=== PATIENT | male | born 1925 | race Caucasian/White ===

== ENCOUNTER 2016-05-04 10:22 | Emergency (ER) | payer OTHER ==
--- NOTE | ~2016-05-04 | CR72 ---
[facility] A Service of [facility] RADIOLOGY TEXT RESULTS PATIENT: ISIAH DAMON LOCATION: [facility] : [birth year] UNIT #: [id number] AGE: [address]: Andrew Arias MD SEX: M ORDER DR: [id number] [facility] [address] [place] [address] [place], [place] [address] [id number] E MR#: [id number] Acc #: [id number] NAME: ISIAH DAMON. : 1925 SEX: M STUDY DATE/TIME: 05/04/2016 10:13 UNIT: [facility] ROOM: STUDY DESCRIPTION: CR Chest Single View Portable Attending Physician: Andrew Arias M.D. Ordering Physician: Andrew Arias M.D. Primary Care Physician: John Doll M.D. MEDICAL IMAGING REPORT This report is preliminary unless electronic signature is present EXAM Portable chest HISTORY Weakness with low blood sugar, onset today. Previous history of bypass surgery. COMPARISON 02/16/2013 TECHNIQUE Single AP view of the chest was obtained. FINDINGS Mild cardiomegaly is seen and unchanged from the previous exam. No new infiltrates are seen on either side. No pleural fluid is noted. Calcified pleural plaques are seen on the left and there is generalized pleural thickening on the right but this is unchanged. Vascular markings are normal. IMPRESSION Chronic pleural disease bilaterally, stable since the previous exam. No new infiltrates are seen. Pulmonary vascular markings are normal. Dictated by... Jovanny Kaiser M.D. THIS IS AN ELECTRONICALLY VERIFIED REPORT Jovanny Kaiser M.D. at 05/05/2016 10:46 AM YANDEL/natalio TD: 05/04/2016 15:09 JOB #: [id number] [facility] A Service [facility] RADIOLOGY TEXT RESULTS PATIENT: ISIAH DAMON LOCATION: [facility] : [birth year] UNIT #: [id number] AGE: [address]: Andrew Arias MD SEX: M ORDER DR: MEDICAL IMAGING REPORT Page 1 of 1 COPY
[~2016-05-04 10:22] MED LIST: ALTACE2.5 MG PO; ASPIRINEC PO; BACTROBAN22 GM TP; CIPRO PO; COLACE PO; COREG3.125 MG PO; ECOTRIN81 M1 PO; FLOMAX0.4 M1 PO; FUROSEMIDE40 MG PO; GLUCOTROL PO; HUMULIN 70/30 V10 ML SUBQ; HUMULIN 70100 UNIT/1 SQ; LANOXIN PO; LASIX20 MG PO; LIPITOR PO; METRONIDAZOLE PO; PIOGLITAZONE15 MG PO; TYLENOL325 M1 PO
[2016-05-04 10:25] LABS: BASOPHIL# 0.1 X10e3 (0-0.3); BASOPHIL% 0.4 % (0-2.5); EOSINOPHIL# 0.3 X10e3 (0-0.7); HEMATOCRIT 41.2 % (38.0-50.0); HEMOGLOBIN 13.2 gm/dL (13.0-16.0); LYMPHOCYTE# 1.3 X10e3 (1.0-3.5); MEAN CELL VOLUME 94.2 FL (83-96); MEAN CORPUSCULAR HEMOGLOBIN 30.1 PG (28-34); MEAN PLATELET VOLUME 10.6 FL (6.5-11.5); MONOCYTE# 1.5 X10e3 (0-1.0); MONOCYTE% 10.9 % (3.0-12.0); NEUTROPHIL# 10.8 X10e3 (1.5-7.1); NEUTROPHIL% 77.7 % (40-75); PLATELET COUNT 168 X10e3 (140-420); RED BLOOD COUNT 4.38 X10e (3.90-5.60); WHITE BLOOD COUNT 13.9 X10e3 (4.0-10.5)
[2016-05-04 10:29] LABS: DIFF IND NO
[2016-05-04 10:56] LABS: ALBUMIN SERUM 3.5 g/dL (3.5-5.0); ALKALINE PHOSPHATASE 84 U/L (32-92); ALT (SGPT) 21 U/L (10-40); AST (SGOT) 25 U/L (10-42); BILIRUBIN,TOTAL 0.8 mg/dL (0.2-2.0); BLOOD UREA NITROGEN 24 mg/dL (9-23); CALCIUM SERUM 8.9 mg/dL (8.4-10.2); CARBON DIOXIDE 33 mmol/L (22-31); CHLORIDE 102 mmol/L (100-111); GLOM FILT RATE Estimated ABOVE60 mL/min (>60); POTASSIUM 3.7 mmol/L (3.5-5.1); PROTEIN TOTAL SERUM 7.2 g/dL (6.0-8.3); SODIUM 139 mmol/L (135-145)
[2016-05-04 11:00] LABS: GLUCOSE FASTING 31 mg/dL (70-110)
== END 2016-05-04 14:35 | disposition home or self-care (01) ==
LOC: CED 10:22
PROVIDERS: Emergency Medicine
DX: E10.65 Type 1 diabetes mellitus with hyperglycemia (principal); I10 Essential (primary) hypertension; Z79.899 Other long term (current) drug therapy; Z79.82 Long term (current) use of aspirin; Z87.891 Personal history of nicotine dependence
CPT/HCPCS: 36415; 71010; 80053; 82947; 85025; 96374; 99291

== ENCOUNTER 2016-05-16 02:03 | Emergency (ER) | payer OTHER ==
--- NOTE | ~2016-05-16 | CT71 ---
[facility] A Service of [facility] RADIOLOGY TEXT RESULTS PATIENT: ISIAH DAMON LOCATION: [facility] : [birth year] UNIT #: [id number] AGE: [address]: Donaldo Rosario MD SEX: M ORDER DR: [id number] [facility] [address] [place], [place] [address] [id number] E MR#: [id number] Acc #: [id number] NAME: ISIAH DAMON : 1925 SEX: M STUDY DATE/TIME: 05/16/2016 2:25 UNIT: [facility] ROOM: STUDY DESCRIPTION: CT Head Wo Contrast Attending Physician: Donaldo Rosario M.D. Ordering Physician: Donaldo Rosario M.D. Primary Care Physician: John Doll M.D. MEDICAL IMAGING REPORT This report is preliminary unless electronic signature is present EXAM CT head without contrast INDICATION Patient found down after a fall today. Confusion today. PROCEDURE Unenhanced CT of the head COMPARISON None TECHNIQUE This CT exam was performed with one or more of the following radiation dose reduction techniques: automatic exposure control, adjustment of mA and/or kV according to patient size, and iterative reconstruction. FINDINGS There is a large hematoma on the right measuring approximately 9.3 x 4.9 cm involving the posterior basal ganglia, parietal lobe, right occipital lobe and extending into the temporal lobe. There is significant right to left mass effect, with approximately 10.0 mm of [id number] midline shift and compression of the right lateral ventricle. Suspicion for a small amount of intraventricular extension. There is a small subarachnoid component in the right parietal region. IMPRESSION 1. Large hematoma involving the posterior right basal ganglia parietal lobe, occipital lobe and extending into the right temporal lobe. There is approximately 10.0 mm of right to left midline shift. 2. Compression of the right lateral ventricle. 3. Probably small amount of intraventricular extension and a small amount of subarachnoid hemorrhage in the right parietal region. [facility] A Service of [facility] RADIOLOGY TEXT RESULTS PATIENT: ISIAH DAMON LOCATION: [facility] : [birth year] UNIT #: [id number] AGE: [address]: Donaldo Rosario MD SEX: M ORDER DR: Dictated by... Mitch Wick M.D. THIS IS AN ELECTRONICALLY VERIFIED REPORT Mitch Wick M.D. at 05/16/2016 9:55 PM MARIA E/natalio TD: 05/16/2016 08:11 JOB #: [id number] MEDICAL IMAGING REPORT Page 1 of 1 COPY
--- NOTE | ~2016-05-16 | CR72 ---
[facility] A Service of [facility] RADIOLOGY TEXT RESULTS PATIENT: ISIAH DAMON LOCATION: [facility] : [birth year] UNIT #: [id number] AGE: [address]: Donaldo Rosario MD SEX: M ORDER DR: [id number] [facility] [address] [place], [place] [address] [id number] E MR#: [id number] Acc #: [id number] NAME: ISIAH DAMON : 1925 SEX: M STUDY DATE/TIME: 05/16/2016 2:56 UNIT: [facility] ROOM: STUDY DESCRIPTION: CR Chest Single View Portable Attending Physician: Donaldo Rosario M.D. Ordering Physician: Donaldo Rosario M.D. Primary Care Physician: John Doll M.D. MEDICAL IMAGING REPORT This report is preliminary unless electronic signature is present EXAM Portable chest INDICATION Shortness of air. Confusion today. PROCEDURE Frontal view chest COMPARISON 05/04/2016 FINDINGS Large cardiomegaly. Previous sternotomy. No dense consolidation, appreciable pleural fluid or pneumothorax. IMPRESSION Cardiomegaly. No dense consolidation. Dictated by... Mitch Wick M.D. THIS IS AN ELECTRONICALLY VERIFIED REPORT Mitch Wick M.D. at 05/16/2016 9:55 PM Akshat TD: 05/16/2016 08:16 JOB #: [id number] MEDICAL IMAGING REPORT Page 1 of 1 COPY
--- NOTE | ~2016-05-16 | EKG ---
PATIENT: ISIAH DAMON UNIT #: [id number] Ventricular Rate: 88 BPM Atrial Rate: 88 BPM P-R Interval: 236 ms QRS Duration: 112 ms Q-T Interval: 404 ms QTC Calculation(Bezet): 488 ms P [place]: 62 degrees Calculated R [place]: -30 degrees Calculated T [place]: 42 degrees Diagnosis Line: Sinus rhythm with 1st degree A-V block Diagnosis Line: Left axis deviation Diagnosis Line: Incomplete right bundle branch block Diagnosis Line: Nonspecific ST abnormality Diagnosis Line: Prolonged QT Diagnosis Line: Abnormal ECG Diagnosis Line: When compared with ECG of 16-FEB-2013 17:09, Diagnosis Line: Incomplete right bundle branch block is now Diagnosis Line: Present Diagnosis Line: Confirmed by REHANA ORNELAS MD ([id number]) on 05/17/2016 Diagnosis Line: 11:06:39 PM INTERPRETING MD: JOHNSON KOHLI
--- NOTE | ~2016-05-16 | CT52 ---
[facility] A Service of [facility] RADIOLOGY TEXT RESULTS PATIENT: ISIAH DAMON LOCATION: [facility] : [birth year] UNIT #: [id number] AGE: [address]: Donaldo Rosario MD SEX: M ORDER DR: [id number] [place] [id number] [facility] [place], [place] [address] [id number] E MR#: [id number] Acc #: [id number] NAME: ISIAH DAMON : 1925 SEX: M STUDY DATE/TIME: 05/16/2016 2:29 UNIT: [facility] ROOM: STUDY DESCRIPTION: CT Cervical Spine Wo Cont Attending Physician: Donaldo Rosario M.D. Ordering Physician: Donaldo Rosario M.D. Primary Care Physician: John Doll M.D. MEDICAL IMAGING REPORT This report is preliminary unless electronic signature is present EXAM CT cervical spine without contrast INDICATION Patient found down today. Confusion. Concern for neck injury. PROCEDURE Unenhanced CT cervical spine COMPARISON None TECHNIQUE This CT exam was performed with one or more of the following radiation dose reduction techniques: automatic exposure control, adjustment of mA and/or kV according to patient size, and iterative reconstruction. FINDINGS Multilevel degenerative change. Cervical bodies have normal height. This study is significantly motion degraded. No obvious acute fracture. Calcification bilateral carotid bulbs. Varying degrees of central canal neural foraminal narrowing. IMPRESSION 1. Motion degraded study. 2. No definite acute findings. 3. Multilevel degenerative change. Dictated by... Mitch Wick M.D. THIS IS AN ELECTRONICALLY VERIFIED REPORT Mitch Wick M.D. at 05/16/2016 9:55 PM [facility] A Service [facility] RADIOLOGY TEXT RESULTS PATIENT: ISIAH DAMON LOCATION: [facility] : [birth year] UNIT #: [id number] AGE: [address]: Donaldo Rosario MD SEX: M ORDER DR: Akshat TD: 05/16/2016 08:14 JOB #: [id number] MEDICAL IMAGING REPORT Page 1 of 1 COPY
[2016-05-16 02:26] LABS: URINE SOURCE CLEAN CATCH
[2016-05-16] MEDS ORDERED: ATORVASTATIN CA80 MG PO (02:26)
[2016-05-16] MEDS ORDERED: BAYER ASPIRIN325 M1 PO (02:26)
[2016-05-16] MEDS ORDERED: COREG3.125 MG PO (02:27)
[2016-05-16] MEDS ORDERED: FUROSEMIDE40 MG PO (02:27)
[2016-05-16] MEDS ORDERED: FLOMAX0.4 M1 PO (02:28)
[2016-05-16] MEDS ORDERED: GLUCOTROL5 MG/BOTTL PO (02:28)
[2016-05-16] MEDS ORDERED: TOUJEO SOL300 UNIT/1 SUBQ (02:29)
[2016-05-16] MEDS ORDERED: TRAVATAN Z5 ML (02:31)
[2016-05-16 02:32] LABS: URINE APPEARANCE CLEAR; URINE BILIRUBIN NEG (NEG); URINE BLOOD 1+ (NEG); URINE COLOR YELLOW; URINE GLUCOSE 100 MG/DL (NEG); URINE KETONE NEG (NEG); URINE LEUKOCYTE ESTERASE NEG (NEG); URINE NITRATE NEG (NEG); URINE PROTEIN NEG (NEG); URINE SPECIFIC GRAVITY 1.012 (1.003-1.035); URINE UROBILINOGEN 0.2 MG/DL (NEG)
[2016-05-16 02:35] LABS: URBCS1 AUWI 0-2 /[HPF] (0-2); URINE BACTERIA AUWI NEG (NEGATIVE); URINE SQUAMOUS EPITHELIAL CELL NONE SEEN /[HPF]; UWBCS1 AUWI 0-2 (0-5)
[2016-05-16 02:41] LABS: CULTURE INDICATED? NO
== END 2016-05-16 03:30 | disposition hospice, home (50) ==
LOC: CED 02:03
PROVIDERS: Emergency Medicine
DX: I62.9 Nontraumatic intracranial hemorrhage, unspecified (principal); E11.9 Type 2 diabetes mellitus without complications; I10 Essential (primary) hypertension
CPT/HCPCS: 36415; 70450; 71010; 72125; 81003; 82947; 93005; 96365; 99291; J1953